=== PATIENT | female | born 1970 | race Caucasian/White ===

== ENCOUNTER 2020-12-08 10:25 | Outpatient (CLI) | payer BC | END 2020-12-08 10:26 | disposition home or self-care (01) | LOC: CSHMAMMO 10:25 | PROVIDERS: ATTEND Obstetrics & Gynecology | DX: Z12.31 Encounter for screening mammogram for malignant neoplasm of breast (principal) | CPT/HCPCS: 77063; 77067 ==

== ENCOUNTER 2024-07-30 10:50 | Outpatient (CLI) | payer BC ==
[~2024-07-30 10:50] MED LIST: Magnevist 469MG/ML 20 ML VIAL ONE
== END 2024-07-30 10:51 | disposition home or self-care (01) ==
LOC: CSHULT 10:50
PROVIDERS: ATTEND Student in an Organized Health Care Education/Training Program
DX: R42 Dizziness and giddiness (principal); Z87.898 Personal history of other specified conditions; E78.2 Mixed hyperlipidemia; H93.A9 Pulsatile tinnitus, unspecified ear; R90.82 White matter disease, unspecified
CPT/HCPCS: 70553; 76376; 93880

== ENCOUNTER 2024-08-19 12:14 | Outpatient (CLI) | payer BC | END 2024-08-19 12:15 | disposition home or self-care (01) | LOC: CSHMAMMO 12:14 | PROVIDERS: ATTEND Student in an Organized Health Care Education/Training Program | DX: Z12.31 Encounter for screening mammogram for malignant neoplasm of breast (principal) | CPT/HCPCS: 77063; 77067 ==